=== PATIENT | male | born 1980 | race Two or more races ===

== ENCOUNTER 2018-10-17 20:02 | Observation (INO) | payer OTHER ==
[2018-10-17] MEDS ORDERED: Ketorolac 30 MG/ML SDV IVPUSH ONE (20:18)
[2018-10-17] MEDS ORDERED: Sodium Chloride 0.9% 1,000 ML IV ONE ×2 (20:18→21:50)
[2018-10-17] MEDS ORDERED: Ondansetron 4 MG/2 ML SDV IVPUSH ONE (20:18)
--- NOTE | 2018-10-17 20:20 | EDM.PDOC ---
ED HPI GENERAL MEDICAL PROBLEM - General Chief Complaint: Flank Pain Stated Complaint: PAIN IN RT SIDE OF BACK Time Seen by Provider: 10/17/18 20:19 Source of Information: Reports: Patient - History of Present Illness INITIAL COMMENTS - FREE TEXT/NARRATIVE: HISTORY AND PHYSICAL: History of present illness: [Patient with history of renal stones presents with right flank pain for 12-24 hours increasing in severity some nausea no vomiting no fever chills or sweats ] Review of systems: As per history of present illness and below otherwise all systems reviewed and negative. Past medical history: As per history of present illness and as reviewed below otherwise noncontributory. Surgical history: As per history of present illness and as reviewed below otherwise noncontributory. Social history: No reported history of drug or alcohol abuse. Family history: As per history of present illness and as reviewed below otherwise noncontributory. Physical exam: HEENT: Atraumatic, normocephalic, pupils reactive, negative for conjunctival pallor or scleral icterus, mucous membranes moist, throat clear, neck supple, nontender, trachea midline. Lungs: Clear to auscultation, breath sounds equal bilaterally, chest nontender. Heart: S1S2, regular, negative for clicks, rubs, or JVD. Abdomen: Soft, nondistended, nontender. Negative for masses or hepatosplenomegaly. Negative for costovertebral tenderness. Pelvis: Stable nontender. Genitourinary: Deferred. Rectal: Deferred. Extremities: Atraumatic, negative for cords or calf pain. Neurovascular unremarkable. Neuro: Awake, alert, oriented. Cranial nerves II through XII unremarkable. Cerebellum unremarkable. Motor and sensory unremarkable throughout. Exam nonfocal. Diagnostics: [CBC CMP UA troponin lipase CT abdomen pelvis no contrast ] Therapeutics: [Normal saline Zofran Toradol ] Impression Right flank /back pain Elevated lipase Definitive disposition and diagnosis as appropriate pending reevaluation and review of above. right flank Pain Score (Numeric/FACES): 7 - Related Data Allergies Allergy/AdvReac Type Severity Reaction Status Date / Time No Known Allergies Allergy Verified 10/17/18 20:37 Home Meds: Home Meds . [No Known Home Meds] 10/17/18 [History] ED ROS GENERAL - Review of Systems Review Of Systems: See Below ED EXAM, GENERAL - Physical Exam Exam: See Below Course - Vital Signs Last Recorded V/S: Last Vital Signs Temp 98.2 F 10/17/18 20:19 Pulse 96 10/17/18 20:19 Resp 20 10/17/18 20:19 BP 149/94 H 10/17/18 20:19 Pulse Ox 96 10/17/18 20:19 - Orders/Labs/Meds Orders: Active Orders 24 hr Category Date Time Status Abdomen Pelvis w Cont [CT] Stat Exams 10/17/18 21:24 Ordered CULTURE BLOOD [BC] Stat Lab 10/17/18 21:00 Received CULTURE BLOOD [BC] Stat Lab 10/17/18 21:10 Received Blood Culture x2 Reflex Set [OM.PC] Stat Oth 10/17/18 20:18 Ordered Labs: Laboratory Tests 10/17/18 10/17/18 10/17/18 Range/Units 20:20 20:38 20:38 WBC 8.30 (4.0-11.0) K/uL RBC 5.62 (4.50-5.90) M/uL Hgb 16.5 (13.0-17.0) g/dL Hct 49.5 (38.0-50.0) % MCV 88.1 (80.0-98.0) fL MCH 29.4 (27.0-32.0) pg MCHC 33.3 (31.0-37.0) g/dL RDW Std Deviation 44.1 (28.0-62.0) fl RDW Coeff of Alfie 14 (11.0-15.0) % Plt Count 238 (150-400) K/uL MPV 10.50 (7.40-12.00) fL Neut % (Auto) 66.4 (48.0-80.0) % Lymph % (Auto) 25.3 (16.0-40.0) % Fisher % (Auto) 5.4 (0.0-15.0) % Eos % (Auto) 2.8 (0.0-7.0) % Baso % (Auto) 0.1 (0.0-1.5) % Neut # (Auto) 5.5 (1.4-5.7) K/uL Lymph # (Auto) 2.1 (0.6-2.4) K/uL Fisher # (Auto) 0.5 (0.0-0.8) K/uL Eos # (Auto) 0.2 (0.0-0.7) K/uL Baso # (Auto) 0.0 (0.0-0.1) K/uL Nucleated RBC % 0.0 /100WBC Nucleated RBCs # 0 K/uL Sodium 141 (136-148) mmol/L Potassium 4.3 (3.5-5.1) mmol/L Chloride 106 (98-107) mmol/L Carbon Dioxide 25.5 (21.0-32.0) mmol/L BUN 17 (7.0-18.0) mg/dL Creatinine 1.3 (0.8-1.3) mg/dL Est Cr Clr Drug Dosing 91.18 mL/min Estimated GFR (MDRD) > 60.0 ml/min Glucose 94 (74-106) mg/dL Calcium 8.9 (8.5-10.1) mg/dL Total Bilirubin 0.5 (0.2-1.0) mg/dL AST 20 (15-37) IU/L ALT 33 (14-63) IU/L Alkaline Phosphatase 90 (46-116) U/L Troponin I < 0.050 (0.000-0.056) ng/mL Total Protein 7.6 (6.4-8.2) g/dL Albumin 3.8 (3.4-5.0) g/dL Globulin 3.8 (2.6-4.0) g/dL Albumin/Globulin Ratio 1.0 (0.9-1.6) Lipase 926 H (73-393) U/L Urine Color YELLOW Urine Appearance CLEAR Urine pH 7.0 (5.0-8.0) Ur Specific [place] 1.020 (1.001-1.035) Urine Protein NEGATIVE (NEGATIVE) mg/dL Urine Glucose (UA) NEGATIVE (NEGATIVE) mg/dL Urine Ketones NEGATIVE (NEGATIVE) mg/dL Urine Occult Blood TRACE-INTACT H (NEGATIVE) Urine Nitrite NEGATIVE (NEGATIVE) Urine Bilirubin NEGATIVE (NEGATIVE) Urine Urobilinogen 0.2 (<2.0) EU/dL Ur Leukocyte Esterase NEGATIVE (NEGATIVE) Urine RBC 1-3 (0-2/HPF) Urine WBC NONE SEEN (0-5/HPF) Ur Epithelial Cells FEW (NONE-FEW) Urine Bacteria RARE (NEGATIVE) Meds: Medications Discontinued Medications Generic Name Dose Route Start Last Admin Trade Name Freq PRN Reason Stop Dose Admin Sodium Chloride 1,000 mls @ 999 mls/hr 10/17/18 20:18 10/17/18 20:32 Normal Saline IV 10/17/18 21:18 999 mls/hr STAT ONE Administration Ketorolac Tromethamine 30 mg 10/17/18 20:18 10/17/18 20:32 Toradol IVPUSH 10/17/18 20:19 30 mg ONETIME ONE Administration Ondansetron HCl 8 mg 10/17/18 20:18 10/17/18 20:32 Zofran IVPUSH 10/17/18 20:19 8 mg ONETIME ONE Administration Departure - Departure Time of Disposition: 21:42 Disposition: Refer to Observation Condition: Fair Clinical Impression: Abdominal pain, Elevated lipase - Discharge Information Referrals: PCP,Not In Area [Primary Care Provider] - Forms: ED Department Discharge - My Orders Last 24 Hours: My Active Orders 10/17/18 20:18 Blood Culture x2 Reflex Set [OM.PC] Stat 10/17/18 21:00 CULTURE BLOOD [BC] Stat 10/17/18 21:10 CULTURE BLOOD [BC] Stat 10/17/18 21:24 Abdomen Pelvis w Cont [CT] Stat - Assessment/Plan Last 24 Hours: My Active Orders 10/17/18 20:18 Blood Culture x2 Reflex Set [OM.PC] Stat 10/17/18 21:00 CULTURE BLOOD [BC] Stat 10/17/18 21:10 CULTURE BLOOD [BC] Stat 10/17/18 21:24 Abdomen Pelvis w Cont [CT] Stat
[2018-10-17 21:08] LABS: CHLORIDE,CL 106 mmol/L (98-107); SODIUM,NA 141 mmol/L (136-148)
--- NOTE | 2018-10-17 21:14 | CT ---
INDICATION: Right flank pain, history of kidney stones. TECHNIQUE: CT abdomen and pelvis without contrast. COMPARISON: None. FINDINGS: Lower chest: 5 millimeter right middle lobe pulmonary nodule (201, 3). Liver: Normal in size and attenuation. No masses. Gallbladder and bile ducts: Contracted gallbladder without pericholecystic inflammation. Pancreas: Unremarkable. No mass or inflammation. Spleen: Normal in size. No masses. Adrenal glands: Normal in size. No nodules. Kidneys: Right kidney is normal in contour with a 1 millimeter nonobstructing stone at the upper pole. No hydronephrosis or ureteral stone. 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 Left kidney is also located more inferior with note made of accessory vessels extending from the left common iliac vasculature. GI tract: The stomach is unremarkable. There are no dilated loops of large or small intestine. The terminal ileum is unremarkable. Mild colonic diverticulosis without localizing inflammation. Vasculature: Unremarkable. Lymph nodes: No lymphadenopathy. Abdominal wall/Omentum/Peritoneum: Fat containing left indirect inguinal hernia. Pelvis: Unremarkable. No pelvic masses. Bones: Unremarkable for age. IMPRESSION: 1. Nephrolithiasis without ureteral stone or hydronephrosis. 2. Colonic diverticulosis without lyn diverticulitis. 3. Right middle lobe pulmonary nodule measuring 5 millimeters. In a low risk patient, no further follow-up is required. In a high-risk patient, follow-up chest CT recommended in 12 months. Please note that all CT scans at this facility use dose modulation, iterative reconstruction, and/or weight-based dosing when appropriate to reduce radiation dose to as low as reasonably achievable. Dictated by All Hernandez MD @ Oct 17 2018 9:02PM Signed by Dr. All Hernandez @ Oct 17 2018 9:12PM
[2018-10-17] MEDS ORDERED: Morphine 10 MG/ML Syringe IVPUSH PRN (21:51)
[2018-10-17] MEDS ORDERED: Ondansetron 4 MG/2 ML SDV IVPUSH PRN (21:51)
--- NOTE | 2018-10-17 22:00 | PCM.HP ---
H&P History of Present Illness - General Date of Service: 10/17/18 Admit Problem/Dx: Admission Diagnosis/Problem Admission Diagnosis/Problem Pancreatitis - History of Present Illness Initial Comments - Free Text/Narative: 38 yo male who presents with right flank pain. Patient reports pain from the right back that extends to the mid lower abdomen. It started today. It is not associated with eating. He reports similar pain about once a year that last about a week. He denies any history of pancreatitis. He had one beer yesterday but denies frequent alcohol use. He was noted to have a lipase of 926. Ct scan reported no acute disease. He denies any tobacco use. right flank Pain Score (Numeric/FACES): 7 - Related Data Allergies/Adverse Reactions: Allergies Allergy/AdvReac Type Severity Reaction Status Date / Time No Known Allergies Allergy Verified 10/17/18 20:37 Home Medications: Home Meds . [No Known Home Meds] 10/17/18 [History] Past Medical History HEENT History: Reports: None Cardiovascular History: Reports: None Respiratory History: Reports: None Genitourinary History: Reports: Renal Calculus Musculoskeletal History: Reports: None Neurological History: Reports: None Psychiatric History: Reports: None Endocrine/Metabolic History: Reports: None Hematologic History: Reports: None Oncologic (Cancer) History: Reports: None Dermatologic History: Reports: None - Infectious Disease History Infectious Disease History: Reports: None - Past Surgical History Head Surgeries/Procedures: Reports: None GI Surgical History: Reports: Appendectomy Social & Family History - Family History Family Medical History: Noncontributory - Tobacco Use Smoking Status *Q: Never Smoker - Recreational Drug Use Recreational Drug Use: No H&P Review of Systems - Review of Systems: Review Of Systems: ROS reveals no pertinent complaints other than HPI. Exam - Vital Signs Vital Signs: Last Vital Signs Temp 36.6 C 10/17/18 21:44 Pulse 93 10/17/18 21:44 Resp 18 10/17/18 21:44 BP 136/79 10/17/18 21:44 Pulse Ox 97 10/17/18 21:44 Weight: 120.202 kg - Exam General: Alert, Oriented HEENT: Mucosa Moist & [place] Lungs: Clear to Auscultation, Normal Respiratory Effort Cardiovascular: Regular Rate, Regular Rhythm GI/Abdominal Exam: Normal Bowel Sounds, Soft, Non-Tender Back Exam: No: CVA Tenderness (L), CVA Tenderness (R) Skin: Warm, Dry, Intact - Patient Data Lab Results Last 24 hrs: Laboratory Results - last 24 hr 10/17/18 10/17/18 10/17/18 Range/Units 20:20 20:38 20:38 WBC 8.30 (4.0-11.0) K/uL RBC 5.62 (4.50-5.90) M/uL Hgb 16.5 (13.0-17.0) g/dL Hct 49.5 (38.0-50.0) % MCV 88.1 (80.0-98.0) fL MCH 29.4 (27.0-32.0) pg MCHC 33.3 (31.0-37.0) g/dL RDW Std Deviation 44.1 (28.0-62.0) fl RDW Coeff of Alfie 14 (11.0-15.0) % Plt Count 238 (150-400) K/uL MPV 10.50 (7.40-12.00) fL Neut % (Auto) 66.4 (48.0-80.0) % Lymph % (Auto) 25.3 (16.0-40.0) % [place] % (Auto) 5.4 (0.0-15.0) % Eos % (Auto) 2.8 (0.0-7.0) % Baso % (Auto) 0.1 (0.0-1.5) % Neut # (Auto) 5.5 (1.4-5.7) K/uL Lymph # (Auto) 2.1 (0.6-2.4) K/uL [place] # (Auto) 0.5 (0.0-0.8) K/uL Eos # (Auto) 0.2 (0.0-0.7) K/uL Baso # (Auto) 0.0 (0.0-0.1) K/uL Nucleated RBC % 0.0 /100WBC Nucleated RBCs # 0 K/uL Sodium 141 (136-148) mmol/L Potassium 4.3 (3.5-5.1) mmol/L Chloride 106 (98-107) mmol/L Carbon Dioxide 25.5 (21.0-32.0) mmol/L BUN 17 (7.0-18.0) mg/dL Creatinine 1.3 (0.8-1.3) mg/dL Est Cr Clr Drug Dosing 91.18 mL/min Estimated GFR (MDRD) > 60.0 ml/min Glucose 94 (74-106) mg/dL Calcium 8.9 (8.5-10.1) mg/dL Total Bilirubin 0.5 (0.2-1.0) mg/dL AST 20 (15-37) IU/L ALT 33 (14-63) IU/L Alkaline Phosphatase 90 (46-116) U/L Troponin I < 0.050 (0.000-0.056) ng/mL Total Protein 7.6 (6.4-8.2) g/dL Albumin 3.8 (3.4-5.0) g/dL Globulin 3.8 (2.6-4.0) g/dL Albumin/Globulin Ratio 1.0 (0.9-1.6) Lipase 926 H (73-393) U/L Urine Color YELLOW Urine Appearance CLEAR Urine pH 7.0 (5.0-8.0) Ur Specific [place] 1.020 (1.001-1.035) Urine Protein NEGATIVE (NEGATIVE) mg/dL Urine Glucose (UA) NEGATIVE (NEGATIVE) mg/dL Urine Ketones NEGATIVE (NEGATIVE) mg/dL Urine Occult Blood TRACE-INTACT H (NEGATIVE) Urine Nitrite NEGATIVE (NEGATIVE) Urine Bilirubin NEGATIVE (NEGATIVE) Urine Urobilinogen 0.2 (<2.0) EU/dL Ur Leukocyte Esterase NEGATIVE (NEGATIVE) Urine RBC 1-3 (0-2/HPF) Urine WBC NONE SEEN (0-5/HPF) Ur Epithelial Cells FEW (NONE-FEW) Urine Bacteria RARE (NEGATIVE) Result Diagrams: 10/17/18 20:38 10/17/18 20:38 Problem List Initiated/Reviewed/Updated: Yes Orders Last 24hrs: Active Orders 24 hr Category Date Time Status Admission Status [Patient Status] [ADT] Stat ADT 10/17/18 21:43 Active Antiembolic Devices [RC] PER UNIT ROUTINE Care 10/17/18 21:52 Ordered Oxygen Therapy [RC] PRN Care 10/17/18 21:51 Ordered Up ad Yee [RC] ASDIRECTED Care 10/17/18 21:51 Ordered VTE/DVT Education [RC] PER UNIT ROUTINE Care 10/17/18 21:51 Ordered Vital Signs [RC] Q4H Care 10/17/18 21:51 Ordered Nothing per Oral Now Diet [DIET] Diet 10/17/18 Breakfast Ordered Abdomen Ltd [US] Routine Exams 10/17/18 21:53 Ordered Abdomen Pelvis w Cont [CT] Stat Exams 10/17/18 21:24 Ordered CBC WITH AUTO DIFF [HEME] AM Lab 10/18/18 05:11 Ordered COMPREHENSIVE METABOLIC PN,CMP [CHEM] AM Lab 10/18/18 05:11 Ordered CULTURE BLOOD [BC] Stat Lab 10/17/18 21:00 Received CULTURE BLOOD [BC] Stat Lab 10/17/18 21:10 Received LIPID PANEL [CHEM] Routine Lab 10/17/18 21:54 Ordered Morphine Med 10/17/18 21:51 Ordered 2 mg IVPUSH Q2H PRN Ondansetron [Zofran] Med 10/17/18 21:51 Ordered 4 mg IVPUSH Q4H PRN Sodium Chloride 0.9% [Normal Saline] 1,000 ml Med 10/17/18 21:50 Ordered IV .Bolus Sodium Chloride 0.9% [Normal Saline] 1,000 ml Med 10/17/18 22:00 Ordered IV ASDIRECTED Blood Culture x2 Reflex Set [OM.PC] Stat Oth 10/17/18 20:18 Ordered Sequential Compression Device [OM.PC] Per Unit Routine Oth 10/17/18 21:51 Ordered Resuscitation Status Routine Resus Stat 10/17/18 21:51 Ordered Medication Orders Sodium Chloride (Normal Saline) 1,000 mls @ 999 mls/hr IV .Bolus ONE Stop: 10/17/18 22:50 Sodium Chloride (Normal Saline) 1,000 mls @ 200 mls/hr IV ASDIRECTED SUYAPA Morphine Sulfate (Morphine) 2 mg IVPUSH Q2H PRN PRN Reason: Pain (severe 7-10) Stop: 10/18/18 21:53 Ondansetron HCl (Zofran) 4 mg IVPUSH Q4H PRN PRN Reason: Nausea Assessment/Plan Comment:: 38 yo male admitted with acute pancreatitis. We will resuscitate with IV fluids and give bowel rest. We will check a RUQ ultrasound and lipid panel.
--- NOTE | 2018-10-17 23:26 | US ---
INDICATION: Pancreatitis TECHNIQUE: Ultrasound abdomen limited. Sonographic images of the right upper quadrant were obtained using millan-scale and color Doppler images. COMPARISON: None FINDINGS: Liver: Normal in size and hepatic parenchyma.. No masses. No intrahepatic biliary dilatation. Gallbladder: Contracted gallbladder. No stones or sludge. Normal wall thickness. No pericholecystic fluid. Common bile duct: 2 mm. Pancreas: The pancreas is not well demonstrated due to adjacent bowel gas. Right kidney: 14.0 cm. Normal echotexture and cortex. No masses, stones, or hydronephrosis. Vasculature: Proximal abdominal aorta and IVC are normal. IMPRESSION: The pancreas is not well seen due to adjacent bowel gas. No evidence of free fluid or fluid collections in the upper abdomen. Dictated by Marc Cisneros MD @ 10/17/2018 11:24:49 PM Dictated by: Marc Cisneros MD @ 10/17/2018 23:24:58 (Electronically Signed)
[2018-10-18] MEDS: Sodium Chloride 0.9% 1,000 ML IV SCH ×3 (00:19→11:39)
[2018-10-18 07:36] LABS: CHLORIDE,CL 110 mmol/L (98-107); SODIUM,NA 141 mmol/L (136-148)
--- NOTE | 2018-10-18 13:13 | PCM.DCSUM1 ---
Discharge Summary - Hospital Course Brief History: 38 yo male who presents with right flank pain. Patient reports pain from the right back that extends to the mid lower abdomen. It started today. It is not associated with eating. He reports similar pain about once a year that last about a week. He denies any history of pancreatitis. He had one beer yesterday but denies frequent alcohol use. He was noted to have a lipase of 926. Ct scan reported no acute disease. He denies any tobacco use. Diagnosis: Stroke: No - Discharge Data Discharge Date: 10/18/18 Discharge Disposition: Home, Self-Care 01 Condition: Good - Discharge Diagnosis/Problem(s) (1) Abdominal pain SNOMED Code(s): 82455578 ICD Code: R10.9 - UNSPECIFIED ABDOMINAL PAIN Status: Acute (2) Elevated lipase SNOMED Code(s): 230427564 ICD Code: R74.8 - ABNORMAL LEVELS OF OTHER SERUM ENZYMES Status: Acute - Patient Instructions Diet: Full Liquid Diet (next couple days then slowly advance to regular.) Activity: As Tolerated (f) Driving: Do Not Drive (no driving today) Showering/Bathing: May Shower Notify Provider of: Fever, Increased Pain, Swelling and Redness, Drainage - Discharge Plan *PRESCRIPTION DRUG MONITORING PROGRAM REVIEWED*: Not Applicable *COPY OF PRESCRIPTION DRUG MONITORING REPORT IN PATIENT JUNIOR: Not Applicable Home Medications: Home Meds . [No Known Home Meds] 10/17/18 [History] Oxygen Therapy Mode: Room Air Patient Handouts: Acute Pancreatitis, [id number] Referrals: PCP,Not In Area [Primary Care Provider] - () - Discharge Summary/Plan Comment DC Time >30 min.: No Discharge Summary/Plan Comment: Admitting diagnoses: Abdominal pain Elevated lipase Discharge Diagnoses: Pancreatitis Brian was admitted and treated with IVFs and bowel rest. He had no further abdominal pain overnight. Triglycerides 333 and RUQ negative for stones. He tolerated FL diet today and continues to have no pain and is eager for discharge home. He will be returning home and does not want follow up in our clinic. He is to return to ED or clinic. He is to remain on FL for next couple days then advance to regular. He is to return to ED or clinic if concerns should arise. - General Info Date of Service: 10/18/18 Admission Dx/Problem (Free Text: Admission Diagnosis/Problem Admission Diagnosis/Problem Pancreatitis Subjective Update: Doing well, no further pain. Asking to go home. Tolerating CL and FL diet this morning. No abdominal pain. No nausea or diarrhea. Functional Status: Reports: Pain Controlled, Tolerating Diet, Ambulating, Urinating - Review of Systems General: Reports: No Symptoms. Denies: Fever, Weakness, Malaise HEENT: Reports: No Symptoms. Denies: Headaches, Sore Throat, Visual Changes Pulmonary: Reports: No Symptoms. Denies: Shortness of Breath Cardiovascular: Reports: No Symptoms. Denies: Chest Pain Gastrointestinal: Reports: No Symptoms. Denies: Abdominal Pain, Nausea, Vomiting Genitourinary: Reports: No Symptoms Neurological: Reports: No Symptoms. Denies: Tremors Psychiatric: Reports: No Symptoms - Patient Data Vitals - Most Recent: Last Vital Signs Temp 97.8 F 10/18/18 12:00 Pulse 82 10/18/18 12:00 Resp 18 10/18/18 12:00 BP 127/79 10/18/18 12:00 Pulse Ox 97 10/18/18 12:00 Weight - Most Recent: 120.4 kg I&O - Last 24 hours: Intake & Output 10/17/18 10/18/18 10/18/18 22:59 06:59 14:59 Intake Total 2756 Output Total 400 Balance 2356 Lab Results - Last 24 hrs: Laboratory Results - last 24 hr 10/17/18 10/17/18 10/17/18 Range/Units 20:20 20:38 20:38 WBC 8.30 (4.0-11.0) K/uL RBC 5.62 (4.50-5.90) M/uL Hgb 16.5 (13.0-17.0) g/dL Hct 49.5 (38.0-50.0) % MCV 88.1 (80.0-98.0) fL MCH 29.4 (27.0-32.0) pg MCHC 33.3 (31.0-37.0) g/dL RDW Std Deviation 44.1 (28.0-62.0) fl RDW Coeff of Alfie 14 (11.0-15.0) % Plt Count 238 (150-400) K/uL MPV 10.50 (7.40-12.00) fL Neut % (Auto) 66.4 (48.0-80.0) % Lymph % (Auto) 25.3 (16.0-40.0) % Lam[place] % (Auto) 5.4 (0.0-15.0) % Eos % (Auto) 2.8 (0.0-7.0) % Baso % (Auto) 0.1 (0.0-1.5) % Neut # (Auto) 5.5 (1.4-5.7) K/uL Lymph # (Auto) 2.1 (0.6-2.4) K/uL [place] # (Auto) 0.5 (0.0-0.8) K/uL Eos # (Auto) 0.2 (0.0-0.7) K/uL Baso # (Auto) 0.0 (0.0-0.1) K/uL Nucleated RBC % 0.0 /100WBC Nucleated RBCs # 0 K/uL Sodium 141 (136-148) mmol/L Potassium 4.3 (3.5-5.1) mmol/L Chloride 106 (98-107) mmol/L Carbon Dioxide 25.5 (21.0-32.0) mmol/L BUN 17 (7.0-18.0) mg/dL Creatinine 1.3 (0.8-1.3) mg/dL Est Cr Clr Drug Dosing 91.18 mL/min Estimated GFR (MDRD) > 60.0 ml/min Glucose 94 (74-106) mg/dL Calcium 8.9 (8.5-10.1) mg/dL Total Bilirubin 0.5 (0.2-1.0) mg/dL AST 20 (15-37) IU/L ALT 33 (14-63) IU/L Alkaline Phosphatase 90 (46-116) U/L Troponin I < 0.050 (0.000-0.056) ng/mL Total Protein 7.6 (6.4-8.2) g/dL Albumin 3.8 (3.4-5.0) g/dL Globulin 3.8 (2.6-4.0) g/dL Albumin/Globulin Ratio 1.0 (0.9-1.6) Triglycerides (0-200) mg/dL Cholesterol (50-200) mg/dL LDL Cholesterol, Calc (60-180) mg/dL VLDL Cholesterol (5-55) mg/dL HDL Cholesterol (40-60) mg/dL Cholesterol/HDL Ratio (3.3-6.0) Lipase 926 H (73-393) U/L Urine Color YELLOW Urine Appearance CLEAR Urine pH 7.0 (5.0-8.0) Ur Specific [place] 1.020 (1.001-1.035) Urine Protein NEGATIVE (NEGATIVE) mg/dL Urine Glucose (UA) NEGATIVE (NEGATIVE) mg/dL Urine Ketones NEGATIVE (NEGATIVE) mg/dL Urine Occult Blood TRACE-INTACT H (NEGATIVE) Urine Nitrite NEGATIVE (NEGATIVE) Urine Bilirubin NEGATIVE (NEGATIVE) Urine Urobilinogen 0.2 (<2.0) EU/dL Ur Leukocyte Esterase NEGATIVE (NEGATIVE) Urine RBC 1-3 (0-2/HPF) Urine WBC NONE SEEN (0-5/HPF) Ur Epithelial Cells FEW (NONE-FEW) Urine Bacteria RARE (NEGATIVE) 10/17/18 10/18/18 10/18/18 Range/Units 21:54 07:02 07:02 WBC 7.92 (4.0-11.0) K/uL RBC 5.03 (4.50-5.90) M/uL Hgb 14.2 (13.0-17.0) g/dL Hct 44.8 (38.0-50.0) % MCV 89.1 (80.0-98.0) fL MCH 28.2 (27.0-32.0) pg MCHC 31.7 (31.0-37.0) g/dL RDW Std Deviation 44.1 (28.0-62.0) fl RDW Coeff of Alfie 14 (11.0-15.0) % Plt Count 197 (150-400) K/uL MPV 10.50 (7.40-12.00) fL Neut % (Auto) 54.2 (48.0-80.0) % Lymph % (Auto) 37.5 (16.0-40.0) % [place] % (Auto) 4.9 (0.0-15.0) % Eos % (Auto) 3.4 (0.0-7.0) % Baso % (Auto) 0.0 (0.0-1.5) % Neut # (Auto) 4.3 (1.4-5.7) K/uL Lymph # (Auto) 3.0 H (0.6-2.4) K/uL [place] # (Auto) 0.4 (0.0-0.8) K/uL Eos # (Auto) 0.3 (0.0-0.7) K/uL Baso # (Auto) 0.0 (0.0-0.1) K/uL Nucleated RBC % 0.0 /100WBC Nucleated RBCs # 0 K/uL Sodium 141 (136-148) mmol/L Potassium 4.4 (3.5-5.1) mmol/L Chloride 110 H (98-107) mmol/L Carbon Dioxide 23.5 (21.0-32.0) mmol/L BUN 20 H (7.0-18.0) mg/dL Creatinine 1.1 (0.8-1.3) mg/dL Est Cr Clr Drug Dosing 107.76 mL/min Estimated GFR (MDRD) > 60.0 ml/min Glucose 94 (74-106) mg/dL Calcium 8.0 L (8.5-10.1) mg/dL Total Bilirubin 0.3 (0.2-1.0) mg/dL AST 14 L (15-37) IU/L ALT 24 (14-63) IU/L Alkaline Phosphatase 75 (46-116) U/L Troponin I (0.000-0.056) ng/mL Total Protein 5.8 L (6.4-8.2) g/dL Albumin 2.8 L (3.4-5.0) g/dL Globulin 3.0 (2.6-4.0) g/dL Albumin/Globulin Ratio 0.9 (0.9-1.6) Triglycerides 333 H (0-200) mg/dL Cholesterol 192 (50-200) mg/dL LDL Cholesterol, Calc 95 (60-180) mg/dL VLDL Cholesterol 66 H (5-55) mg/dL HDL Cholesterol 30 L (40-60) mg/dL Cholesterol/HDL Ratio 6.4 H (3.3-6.0) Lipase (73-393) U/L Urine Color Urine Appearance Urine pH (5.0-8.0) Ur Specific [place] (1.001-1.035) Urine Protein (NEGATIVE) mg/dL Urine Glucose (UA) (NEGATIVE) mg/dL Urine Ketones (NEGATIVE) mg/dL Urine Occult Blood (NEGATIVE) Urine Nitrite (NEGATIVE) Urine Bilirubin (NEGATIVE) Urine Urobilinogen (<2.0) EU/dL Ur Leukocyte Esterase (NEGATIVE) Urine RBC (0-2/HPF) Urine WBC (0-5/HPF) Ur Epithelial Cells (NONE-FEW) Urine Bacteria (NEGATIVE) Med Orders - Current: Current Medications Sodium Chloride (Normal Saline) 1,000 mls @ 200 mls/hr IV ASDIRECTED [facility] Last Admin: 10/18/18 11:39 Dose: 200 mls/hr Morphine Sulfate (Morphine) 2 mg IVPUSH Q2H PRN PRN Reason: Pain (severe 7-10) Stop: 10/18/18 21:53 Ondansetron HCl (Zofran) 4 mg IVPUSH Q4H PRN PRN Reason: Nausea Discontinued Medications Sodium Chloride (Normal Saline) 1,000 mls @ 999 mls/hr IV STAT ONE Stop: 10/17/18 21:18 Last Admin: 10/17/18 20:32 Dose: 999 mls/hr Sodium Chloride (Normal Saline) 1,000 mls @ 999 mls/hr IV .Bolus ONE Stop: 10/17/18 22:50 Last Admin: 10/17/18 23:07 Dose: 999 mls/hr Ketorolac Tromethamine (Toradol) 30 mg IVPUSH ONETIME ONE Stop: 10/17/18 20:19 Last Admin: 10/17/18 20:32 Dose: 30 mg Ondansetron HCl (Zofran) 8 mg IVPUSH ONETIME ONE Stop: 10/17/18 20:19 Last Admin: 10/17/18 20:32 Dose: 8 mg - Exam General: Reports: Alert, Oriented, Cooperative, No Acute Distress Lungs: Reports: Clear to Auscultation, Normal Respiratory Effort Cardiovascular: Reports: Regular Rate, Regular Rhythm GI/Abdominal Exam: Normal Bowel Sounds, Soft, Non-Tender, No Organomegaly Back Exam: Reports: Normal Inspection, Full Range of Motion Extremities: Normal Inspection, Normal Range of Motion, Non-Tender Neurological: Reports: No New Focal Deficit Psy/Mental Status: Reports: Alert, Normal Affect, Normal Mood
== END 2018-10-18 14:30 | disposition home or self-care (01) ==
LOC: MW.ED 20:02 → MW.MS 21:43
PROVIDERS: ADMIT Internal Medicine; ATTEND Internal Medicine
DX: K85.90 Acute pancreatitis without necrosis or infection, unspecified (principal); R74.8 Abnormal levels of other serum enzymes
CPT/HCPCS: 36415; 74176; 76705; 80053; 80061; 81001; 83690; 84484; 85025; 87040; 96361; 96374; 96375; 99285; G0378; J1885; J2405; J7040; 99283